=== PATIENT | male | born 1945 | race Caucasian/White ===

== ENCOUNTER 2022-05-05 14:42 | Inpatient (IN) | payer MEDICARE, SELFPAY ==
[~2022-05-05] VITALS: Ht 182.9 cm; Wt 127.0 kg
[2022-05-05] VITALS (8 sets, daily range): BP systolic 113–167; BP diastolic 54–88
[2022-05-05] MEDS ORDERED: ADVA230A INH (18:26)
[2022-05-05] MEDS ORDERED: MONT10TA97 PO (18:26)
[2022-05-05] MEDS ORDERED: NYST1POW9 TOP (18:26)
[2022-05-05] MEDS ORDERED: METF500T13 PO (18:26)
[2022-05-05] MEDS ORDERED: LOSA100T45 PO (18:26)
[2022-05-05] MEDS ORDERED: OMEP40CA5 PO (18:26)
[2022-05-05] MEDS ORDERED: VENTAER INH (18:26)
[2022-05-05] MEDS ORDERED: ZOLO100T PO (18:26)
[2022-05-05] MEDS ORDERED: ALPR0.25 PO (18:26)
[2022-05-05] MEDS ORDERED: SIMV20TA22 PO (18:26)
[2022-05-05] MEDS ORDERED: DICY20TA20 PO (18:26)
[2022-05-05] MEDS ORDERED: DILT30TA PO (18:26)
[2022-05-05] MEDS ORDERED: FAMO20TA PO (18:26)
[2022-05-05] MEDS ORDERED: GABA-282 PO ×2 (18:26)
[2022-05-05] MEDS ORDERED: ALBUTEROL SULFATE 2.5MG/0.5ML INH NEB SOLN NEB PRN (18:35)
[2022-05-05] MEDS ORDERED: CLAR10CA3 PO (18:39)
[2022-05-05] MEDS ORDERED: FERR1TAB8 PO (18:39)
[2022-05-05] MEDS ORDERED: D31000CA4 PO (18:39)
[2022-05-05] MEDS ORDERED: CENT1TAB PO (18:39)
[2022-05-05] MEDS ORDERED: B-12100021 PO (18:39)
[2022-05-05] MEDS ORDERED: CVS500CA5 PO (18:39)
[2022-05-05] MEDS ORDERED: MUCI600T31 PO (18:39)
[2022-05-05] MEDS ORDERED: ASPI-1 PO (18:39)
[2022-05-05] MEDS ORDERED: OSTETAB2 PO (18:39)
[2022-05-05] MEDS ORDERED: VITA-158 PO (18:39)
[2022-05-05] MEDS ORDERED: REFR0.5D8 OU (18:39)
[2022-05-05] MEDS ORDERED: COFF1CAP3 PO (18:39)
[2022-05-05] MEDS ORDERED: CVS1CAP2 PO (18:39)
[2022-05-05] MEDS ORDERED: SLOWTAB2 PO (18:48)
[2022-05-05] MEDS ORDERED: FURO40TA2 PO (18:48)
[2022-05-05] MEDS ORDERED: NASA1SPR NARES (18:48)
[2022-05-05] MEDS ORDERED: HOME MED LIST COMPLETE! XX SCH (18:55)
[2022-05-05] MEDS ORDERED: MIDAZOLAM INJ 2MG/2ML VIAL As Ordered ONE ×3 (18:55→19:28)
[2022-05-05] MEDS ORDERED: LIDOCAINE 1% MDV 20ML VIAL As Ordered ONE ×2 (18:56→18:57)
[2022-05-05] MEDS ORDERED: flumazeniL 0.5MG/5ML VIAL As Ordered ONE (18:57)
[2022-05-05 19:09] LABS: HEMATOCRIT 43.7 % (42.0-52.0); HEMOGLOBIN 13.8 g/dl (13.5-17.5); MEAN CORPUSCULAR HEMOGLOBIN 28.6 pg (27.0-33.0); MEAN CORPUSCULAR HGB CONC 31.6 g/dl (32.0-36.5); MEAN CORPUSCULAR VOLUME 90.5 fl (80.0-96.0); PLATELET COUNT, AUTOMATED 208 10^3/uL (150-450); RED BLOOD COUNT 4.83 10^6/uL (4.30-6.10); WHITE BLOOD COUNT 10.1 10^3/uL (4.0-10.0)
[2022-05-05] MEDS ORDERED: GLUCAGON INJ 1MG VIAL SC PRN (19:15)
[2022-05-05] MEDS ORDERED: GLUCOSE 4GM CHEW TABLET PO PRN (19:15)
[2022-05-05] MEDS ORDERED: DEXTROSE 50% 50ML SYRINGE IV PRN (19:15)
[2022-05-05 19:20] LABS: INR 1.05; PROTHROMBIN TIME 13.9 SECONDS (12.5-14.5)
[2022-05-05] MEDS ORDERED: FAMOTIDINE 20 MG TAB PO PRN (19:20)
[2022-05-05] MEDS ORDERED: POLYVINYL ALCOHOL OPHTH SOLN 15ML (LIQUITEARS) OU PRN (19:20)
[2022-05-05 19:21] LABS: PARTIAL THROMBOPLASTIN TIME 30.7 SECONDS (24.8-34.2)
[2022-05-05 19:32] LABS: ALKALINE PHOSPHATASE 76 U/L (46-116); ALT/SGPT 23 U/L (7.0-40); AST/SGOT < 8 U/L (<34); BLOOD UREA NITROGEN 22 MG/DL (9-23); CALCIUM LEVEL 8.6 MG/DL (8.3-10.6); CARBON DIOXIDE LEVEL 28 MMOL/L (20-31); CHLORIDE LEVEL 105 MMOL/L (98-107); CREATININE FOR GFR 0.84 MG/DL (0.70-1.30); GLOMERULAR FILTRATION RATE > 60.0 (>42); GLUCOSE, FASTING 146 MG/DL (74-106); POTASSIUM SERUM 4.3 MMOL/L (3.5-5.1); SODIUM LEVEL 138 MMOL/L (136-145)
[2022-05-05 19:33] LABS: CPK CREATINE PHOSPHOKINASE 103 U/L (46-171); MB/CK RELATIVE INDEX 0.97 (< OR =4)
[2022-05-05] MEDS: MIDAZOLAM 5MG 5ML VIAL (FOR CHEST TUBE INSERTIONS) IV PRN ×3 (19:38→19:42)
[2022-05-05] MEDS: MIDAZOLAM INJ 2MG/2ML VIAL IV PRN ×4 (19:38→21:33)
[2022-05-05] MEDS ORDERED: LIDOCAINE 1% MDV 20ML VIAL SC PRN (20:00)
[2022-05-05] MEDS ORDERED: PERCOCET 5MG/325MG TAB PO PRN (20:00)
[2022-05-05] MEDS ORDERED: ACETAMINOPHEN TAB 650MG DOSE (2X325MG) PO PRN (20:00)
[2022-05-05] MEDS ORDERED: ONDANSETRON 4MG 2ML VIAL IV PRN (20:00)
[2022-05-05] MEDS ORDERED: BISACODYL 10MG SUPP PR PRN (20:00)
[2022-05-05] MEDS ORDERED: LEVALBUTEROL 1.25MG 0.5ML CONCENTRATE NEB NEB PRN (20:00)
[2022-05-05] MEDS ORDERED: flumazeniL 0.5MG/5ML VIAL IV PRN (20:00)
[2022-05-05 20:02] LABS: ABG BASE EXCESS -2.1 (-2.0-2.0); ABG HCO3 24.2 MEQ/L (22.0-26.0); ABG O2 SATURATION 95.6 % (95.0-99.0); ABG PARTIAL PRESSURE CO2 47.8 mmHg (35.0-45.0); ABG PARTIAL PRESSURE O2 85.8 mmHg (75.0-100.0); ABG STANDARD HCO3 22.7 MEQ/L (22.0-26.0); ABG TOTAL CO2 25.7 MEQ/L (23.0-31.0); ABG pH (ARTERIAL) 7.323 UNITS (7.350-7.450)
[2022-05-05] MEDS: KCL 20MEQ IN D5/NS 1000ML 1,000 ML IV SCH (20:21)
[2022-05-05] MEDS: PERCOCET 5MG/325MG TAB PO PRN (20:33)
[2022-05-05] MEDS: KETOROLAC 30 MG/ML 1ML VIAL IV SCH (20:37)
[2022-05-05] MEDS ORDERED: UNRESOLVED CLARIFICATION ENTRY XX STA (20:52)
[2022-05-05] MEDS: INSULIN LISPRO (NovoLOG) PER UNIT SC SCH (21:00)
[2022-05-05] MEDS: IPRATROPIUM 0.5MG/ALBUTEROL 2.5MG INH SOL UD 3ML (DUONEB) NEB SCH (21:31)
[2022-05-05] MEDS: LEVALBUTEROL 1.25MG 0.5ML CONCENTRATE NEB NEB SCH (21:31)
[2022-05-05] MEDS: guaiFENesin ER 600 MG TAB PO SCH (22:09)
[2022-05-05] MEDS: SIMVASTATIN 20 MG TAB PO SCH (22:09)
[2022-05-05] MEDS: DOCUSATE SODIUM 100MG CAPSULE PO SCH (22:09)
[2022-05-06] VITALS (8 sets, daily range): BP systolic 99–136; BP diastolic 50–66; O2SAT 99
[2022-05-06] MEDS: GABAPENTIN 300 MG CAP PO SCH ×4 (01:03→20:25)
[2022-05-06] MEDS: LEVALBUTEROL 1.25MG 0.5ML CONCENTRATE NEB NEB SCH ×4 (02:00→19:14)
[2022-05-06] MEDS: KETOROLAC 30 MG/ML 1ML VIAL IV SCH ×4 (03:28→20:27)
[2022-05-06 06:07] LABS: ABG BASE EXCESS -0.4 (-2.0-2.0); ABG HCO3 26.6 MEQ/L (22.0-26.0); ABG O2 SATURATION 95.5 % (95.0-99.0); ABG PARTIAL PRESSURE CO2 53.4 mmHg (35.0-45.0); ABG PARTIAL PRESSURE O2 87.3 mmHg (75.0-100.0); ABG STANDARD HCO3 24.2 MEQ/L (22.0-26.0); ABG TOTAL CO2 28.2 MEQ/L (23.0-31.0); ABG pH (ARTERIAL) 7.315 UNITS (7.350-7.450)
[2022-05-06 06:45] LABS: BASO % 0.2 % (0.0-1.0); EOS # 0.3 10^3/uL (0.0-0.5); EOS % 2.9 % (0.0-3.0); HEMATOCRIT 37.8 % (42.0-52.0); HEMOGLOBIN 11.9 g/dl (13.5-17.5); LYMPH # 1.6 10^3/uL (1.5-5.0); LYMPH % 16.3 % (24.0-44.0); MEAN CORPUSCULAR HEMOGLOBIN 28.6 pg (27.0-33.0); MEAN CORPUSCULAR HGB CONC 31.5 g/dl (32.0-36.5); MEAN CORPUSCULAR VOLUME 90.9 fl (80.0-96.0); MONO # 0.7 10^3/uL (0.0-0.8); MONO % 6.8 % (2.0-8.0); NEUTROPHILS # 7.2 10^3/uL (1.5-8.5); NEUTROPHILS % 73.6 % (36.0-66.0); PLATELET COUNT, AUTOMATED 189 10^3/uL (150-450); RED BLOOD COUNT 4.16 10^6/uL (4.30-6.10); WHITE BLOOD COUNT 9.8 10^3/uL (4.0-10.0)
[2022-05-06 07:20] LABS: ALBUMIN 3.5 G/DL (3.2-5.2); ALKALINE PHOSPHATASE 65 U/L (46-116); ALT/SGPT 18 U/L (7.0-40); AST/SGOT 17 U/L (<34); BILIRUBIN,TOTAL 1.1 MG/DL (0.3-1.2); BLOOD UREA NITROGEN 23 MG/DL (9-23); CARBON DIOXIDE LEVEL 30 MMOL/L (20-31); CHLORIDE LEVEL 101 MMOL/L (98-107); CREATININE FOR GFR 0.89 MG/DL (0.70-1.30); GLOMERULAR FILTRATION RATE > 60.0 (>42); GLUCOSE, FASTING 154 MG/DL (74-106); POTASSIUM SERUM 4.3 MMOL/L (3.5-5.1); SODIUM LEVEL 136 MMOL/L (136-145)
[2022-05-06] MEDS: IPRATROPIUM 0.5MG/ALBUTEROL 2.5MG INH SOL UD 3ML (DUONEB) NEB SCH ×2 (07:29→12:32)
[2022-05-06] MEDS ORDERED: OMEPRAZOLE 20MG CAP PO SCH (09:00)
[2022-05-06] MEDS: DOCUSATE SODIUM 100MG CAPSULE PO SCH ×2 (09:29→20:26)
[2022-05-06] MEDS: ASPIRIN 325 MG TAB PO SCH (09:29)
[2022-05-06] MEDS: PANTOPRAZOLE 40MG TAB (PROTONIX) PO SCH (09:29)
[2022-05-06] MEDS: LACTOBACILLUS ACIDOPHILUS CAP (BACID) PO SCH (09:29)
[2022-05-06] MEDS: LORATADINE 10 MG TAB PO SCH (09:29)
[2022-05-06] MEDS: MOM 30ML SUSPENSION UDC PO SCH (09:29)
[2022-05-06] MEDS: FERROUS SULFATE 325MG TAB PO SCH (09:30)
[2022-05-06] MEDS: FUROSEMIDE 40 MG TAB PO SCH (09:30)
[2022-05-06] MEDS: SERTRALINE 100 MG TAB PO SCH (09:30)
[2022-05-06] MEDS: ASCORBIC ACID 500 MG TAB PO SCH (09:30)
[2022-05-06] MEDS: MONTELUKAST 10 MG TAB PO SCH (09:30)
[2022-05-06] MEDS: guaiFENesin ER 600 MG TAB PO SCH ×2 (09:30→20:26)
[2022-05-06] MEDS: INSULIN LISPRO (NovoLOG) PER UNIT SC SCH ×4 (09:31→20:28)
[2022-05-06] MEDS: HEPARIN SOD (PORCINE) 5000UNITS/ML 1ML VIAL/SYRINGE SC SCH ×2 (09:31→20:25)
[2022-05-06] MEDS: LOSARTAN 50MG TABLET PO SCH (09:32)
[2022-05-06] MEDS: KCL 20MEQ IN D5/NS 1000ML 1,000 ML IV SCH (09:33)
[2022-05-06] MEDS: SIMVASTATIN 20 MG TAB PO SCH (20:26)
[2022-05-06] MEDS: ALPRAZolam 0.25 MG TAB PO PRN (22:18)
[2022-05-07 00:12] VITALS: BP 145/67
[2022-05-07] MEDS: LEVALBUTEROL 1.25MG 0.5ML CONCENTRATE NEB NEB SCH ×4 (01:41→19:32)
[2022-05-07] MEDS: KETOROLAC 30 MG/ML 1ML VIAL IV SCH ×4 (03:00→20:35)
[2022-05-07 04:06] VITALS: BP 131/60
[2022-05-07 05:06] LABS: BASO % 0.4 % (0.0-1.0); EOS # 0.3 10^3/uL (0.0-0.5); EOS % 3.5 % (0.0-3.0); HEMATOCRIT 37.2 % (42.0-52.0); LYMPH # 1.3 10^3/uL (1.5-5.0); LYMPH % 16.7 % (24.0-44.0); MEAN CORPUSCULAR HEMOGLOBIN 29.2 pg (27.0-33.0); MEAN CORPUSCULAR HGB CONC 32.3 g/dl (32.0-36.5); MEAN CORPUSCULAR VOLUME 90.5 fl (80.0-96.0); MONO # 0.7 10^3/uL (0.0-0.8); MONO % 8.2 % (2.0-8.0); NEUTROPHILS # 5.6 10^3/uL (1.5-8.5); NEUTROPHILS % 70.8 % (36.0-66.0); PLATELET COUNT, AUTOMATED 183 10^3/uL (150-450); RED BLOOD COUNT 4.11 10^6/uL (4.30-6.10)
[2022-05-07 05:36] LABS: ALBUMIN 3.5 G/DL (3.2-5.2); ALKALINE PHOSPHATASE 67 U/L (46-116); ALT/SGPT 18 U/L (7.0-40); AST/SGOT < 8 U/L (<34); BILIRUBIN,TOTAL 0.9 MG/DL (0.3-1.2); BLOOD UREA NITROGEN 17 MG/DL (9-23); CALCIUM LEVEL 7.8 MG/DL (8.3-10.6); CARBON DIOXIDE LEVEL 27 MMOL/L (20-31); CHLORIDE LEVEL 106 MMOL/L (98-107); CREATININE FOR GFR 0.86 MG/DL (0.70-1.30); GLOMERULAR FILTRATION RATE > 60.0 (>42); GLUCOSE, FASTING 159 MG/DL (74-106); SODIUM LEVEL 138 MMOL/L (136-145); TOTAL PROTEIN 6.1 G/DL (5.7-8.2)
[2022-05-07] MEDS: INSULIN LISPRO (NovoLOG) PER UNIT SC SCH ×4 (07:30→20:36)
[2022-05-07 08:37] VITALS: BP 158/86
[2022-05-07] MEDS: FERROUS SULFATE 325MG TAB PO SCH (09:03)
[2022-05-07] MEDS: HEPARIN SOD (PORCINE) 5000UNITS/ML 1ML VIAL/SYRINGE SC SCH ×2 (09:03→20:35)
[2022-05-07] MEDS: DOCUSATE SODIUM 100MG CAPSULE PO SCH ×2 (09:03→20:34)
[2022-05-07] MEDS: LOSARTAN 50MG TABLET PO SCH (09:04)
[2022-05-07] MEDS: MONTELUKAST 10 MG TAB PO SCH (09:05)
[2022-05-07] MEDS: guaiFENesin ER 600 MG TAB PO SCH ×2 (09:05→20:33)
[2022-05-07] MEDS: SERTRALINE 100 MG TAB PO SCH (09:05)
[2022-05-07] MEDS: ASPIRIN 325 MG TAB PO SCH (09:05)
[2022-05-07] MEDS: LORATADINE 10 MG TAB PO SCH (09:05)
[2022-05-07] MEDS: GABAPENTIN 300 MG CAP PO SCH ×3 (09:05→20:33)
[2022-05-07] MEDS: ASCORBIC ACID 500 MG TAB PO SCH (09:05)
[2022-05-07] MEDS: LACTOBACILLUS ACIDOPHILUS CAP (BACID) PO SCH (09:05)
[2022-05-07] MEDS: MOM 30ML SUSPENSION UDC PO SCH (09:06)
[2022-05-07] MEDS: PANTOPRAZOLE 40MG TAB (PROTONIX) PO SCH (09:06)
[2022-05-07] MEDS: FUROSEMIDE 40 MG TAB PO SCH (09:06)
[2022-05-07 12:16] VITALS: BP 117/70
[2022-05-07 16:48] VITALS: BP 133/66
[2022-05-07 20:00] VITALS: BP 118/59
[2022-05-07] MEDS: SIMVASTATIN 20 MG TAB PO SCH (20:34)
[2022-05-07] MEDS: ALPRAZolam 0.25 MG TAB PO PRN (20:35)
[2022-05-08] VITALS (7 sets, daily range): BP systolic 107–140; BP diastolic 56–79
[2022-05-08] MEDS: LEVALBUTEROL 1.25MG 0.5ML CONCENTRATE NEB NEB SCH ×3 (02:00→13:29)
[2022-05-08] MEDS: KETOROLAC 30 MG/ML 1ML VIAL IV SCH ×3 (02:45→15:07)
[2022-05-08 06:06] LABS: BASO % 0.2 % (0.0-1.0); EOS # 0.3 10^3/uL (0.0-0.5); EOS % 3.9 % (0.0-3.0); HEMATOCRIT 38.7 % (42.0-52.0); HEMOGLOBIN 12.2 g/dl (13.5-17.5); LYMPH % 12.8 % (24.0-44.0); MEAN CORPUSCULAR HGB CONC 31.5 g/dl (32.0-36.5); MEAN CORPUSCULAR VOLUME 91.9 fl (80.0-96.0); MONO # 0.6 10^3/uL (0.0-0.8); MONO % 7.2 % (2.0-8.0); NEUTROPHILS # 6.1 10^3/uL (1.5-8.5); NEUTROPHILS % 75.5 % (36.0-66.0); PLATELET COUNT, AUTOMATED 195 10^3/uL (150-450); RED BLOOD COUNT 4.21 10^6/uL (4.30-6.10); WHITE BLOOD COUNT 8.1 10^3/uL (4.0-10.0)
[2022-05-08 06:46] LABS: ALBUMIN 3.6 G/DL (3.2-5.2); ALKALINE PHOSPHATASE 71 U/L (46-116); ALT/SGPT 18 U/L (7.0-40); AST/SGOT 18 U/L (<34); BILIRUBIN,TOTAL 1.3 MG/DL (0.3-1.2); BLOOD UREA NITROGEN 22 MG/DL (9-23); CALCIUM LEVEL 8.7 MG/DL (8.3-10.6); CARBON DIOXIDE LEVEL 29 MMOL/L (20-31); CHLORIDE LEVEL 101 MMOL/L (98-107); CREATININE FOR GFR 0.91 MG/DL (0.70-1.30); GLOMERULAR FILTRATION RATE > 60.0 (>42); GLUCOSE, FASTING 171 MG/DL (74-106); POTASSIUM SERUM 4.3 MMOL/L (3.5-5.1); SODIUM LEVEL 138 MMOL/L (136-145); TOTAL PROTEIN 6.5 G/DL (5.7-8.2)
[2022-05-08] MEDS: MOM 30ML SUSPENSION UDC PO SCH (09:48)
[2022-05-08] MEDS: HEPARIN SOD (PORCINE) 5000UNITS/ML 1ML VIAL/SYRINGE SC SCH (09:50)
[2022-05-08] MEDS: SERTRALINE 100 MG TAB PO SCH (09:50)
[2022-05-08] MEDS: INSULIN LISPRO (NovoLOG) PER UNIT SC SCH ×3 (09:50→17:30)
[2022-05-08] MEDS: LACTOBACILLUS ACIDOPHILUS CAP (BACID) PO SCH (09:51)
[2022-05-08] MEDS: ASPIRIN 325 MG TAB PO SCH (09:51)
[2022-05-08] MEDS: DOCUSATE SODIUM 100MG CAPSULE PO SCH (09:52)
[2022-05-08] MEDS: ASCORBIC ACID 500 MG TAB PO SCH (09:52)
[2022-05-08] MEDS: PERCOCET 5MG/325MG TAB PO PRN (09:52)
[2022-05-08] MEDS: FERROUS SULFATE 325MG TAB PO SCH (09:52)
[2022-05-08] MEDS: PANTOPRAZOLE 40MG TAB (PROTONIX) PO SCH (09:53)
[2022-05-08] MEDS: GABAPENTIN 300 MG CAP PO SCH ×2 (09:53→12:32)
[2022-05-08] MEDS: guaiFENesin ER 600 MG TAB PO SCH (09:53)
[2022-05-08] MEDS: MONTELUKAST 10 MG TAB PO SCH (09:53)
[2022-05-08] MEDS: LORATADINE 10 MG TAB PO SCH (09:53)
[2022-05-08] MEDS: FUROSEMIDE 40 MG TAB PO SCH (09:54)
[2022-05-08] MEDS: LOSARTAN 50MG TABLET PO SCH (09:54)
[2022-05-08] MEDS ORDERED: ACET1TAB55 PO (17:49)
== END 2022-05-08 19:30 | disposition home or self-care (01) | DRG 166 ==
LOC: M PCU 18:00 → M ICU 19:29 → M PCU 05-06 16:54
PROVIDERS: ADMIT Family Medicine; ATTEND Family Medicine
PROC: 0B9L30Z Drainage of Left Lung with Drainage Device, Percutaneous Approach (ICD-10-PCS; principal; 2022-05-05)
PROC: B246ZZZ Ultrasonography of Right and Left Heart (ICD-10-PCS; 2022-05-06)
DX: J93.0 Spontaneous tension pneumothorax (principal); J96.01 Acute respiratory failure with hypoxia; J45.909 Unspecified asthma, uncomplicated; G47.33 Obstructive sleep apnea (adult) (pediatric); E78.5 Hyperlipidemia, unspecified; D50.9 Iron deficiency anemia, unspecified; I10 Essential (primary) hypertension; I48.91 Unspecified atrial fibrillation; E11.42 Type 2 diabetes mellitus with diabetic polyneuropathy; R07.89 Other chest pain; K21.9 Gastro-esophageal reflux disease without esophagitis; K58.9 Irritable bowel syndrome, unspecified; J98.6 Disorders of diaphragm; Z90.49 Acquired absence of other specified parts of digestive tract; Z95.0 Presence of cardiac pacemaker; Z98.41 Cataract extraction status, right eye; Z98.42 Cataract extraction status, left eye; Z87.891 Personal history of nicotine dependence; Z20.822 Contact with and (suspected) exposure to COVID-19; Z79.82 Long term (current) use of aspirin; Z79.84 Long term (current) use of oral hypoglycemic drugs; Z79.899 Other long term (current) drug therapy

== ENCOUNTER 2022-05-25 09:20 | Inpatient (IN) | payer MEDICARE ==
[~2022-05-25] VITALS: Ht 182.9 cm; Wt 126.6 kg
[2022-05-25] VITALS (14 sets, daily range): BP systolic 119–144; BP diastolic 61–83
[~2022-05-25 09:20] MED LIST: ACET1TAB55 PO; ADVA230A INH; ALPR0.25 PO; ASPI-1 PO; B-12100021 PO; CENT1TAB PO; CLAR10CA3 PO; COFF1CAP3 PO; CVS1CAP2 PO; CVS500CA5 PO; D31000CA4 PO; DICY20TA20 PO; DILT30TA PO; FAMO20TA PO; FERR1TAB8 PO; FURO40TA2 PO; GABA-282 PO; LOSA100T45 PO; METF500T13 PO; MONT10TA97 PO; MUCI600T31 PO; NASA1SPR NARES; NYST1POW9 TOP; OMEP40CA5 PO; OSTETAB2 PO; REFR0.5D8 OU; SIMV20TA22 PO; SLOWTAB2 PO; VENTAER INH; VITA-158 PO; ZOLO100T PO
[2022-05-25] MEDS ORDERED: LEVALBUTEROL 1.25MG 0.5ML CONCENTRATE NEB NEB PRN (11:50)
[2022-05-25] MEDS ORDERED: ONDANSETRON 4MG 2ML VIAL IV PRN (11:50)
[2022-05-25] MEDS ORDERED: ACETAMINOPHEN TAB 650MG DOSE (2X325MG) PO PRN (11:50)
[2022-05-25] MEDS ORDERED: BISACODYL 10MG SUPP PR PRN (11:50)
[2022-05-25] MEDS ORDERED: PERCOCET 5MG/325MG TAB PO PRN (11:50)
[2022-05-25] MEDS ORDERED: flumazeniL 0.5MG/5ML VIAL IV PRN (12:20)
[2022-05-25] MEDS ORDERED: LIDOCAINE 1% MDV 20ML VIAL SC PRN (12:20)
[2022-05-25] MEDS ORDERED: MIDAZOLAM INJ 2MG/2ML VIAL IV PRN (12:30)
[2022-05-25] MEDS: MIDAZOLAM 5MG 5ML VIAL (FOR CHEST TUBE INSERTIONS) IV PRN ×4 (12:40→12:43)
[2022-05-25] MEDS ORDERED: MIDAZOLAM 5MG 5ML VIAL (FOR CHEST TUBE INSERTIONS) IV PRN (13:12)
[2022-05-25] MEDS ORDERED: ALPRAZolam 0.25 MG TAB PO PRN (13:20)
[2022-05-25] MEDS: LEVALBUTEROL 1.25MG 0.5ML CONCENTRATE NEB NEB SCH ×2 (13:30→20:00)
[2022-05-25] MEDS: KCL 20MEQ IN D5/NS 1000ML 1,000 ML IV SCH (14:00)
[2022-05-25 14:05] LABS: BASO % 0.2 % (0.0-1.0); EOS # 0.2 10^3/uL (0.0-0.5); HEMOGLOBIN 12.2 g/dl (13.5-17.5); LYMPH # 1.1 10^3/uL (1.5-5.0); LYMPH % 12.1 % (24.0-44.0); MEAN CORPUSCULAR HGB CONC 32.1 g/dl (32.0-36.5); MEAN CORPUSCULAR VOLUME 90.3 fl (80.0-96.0); MONO # 0.6 10^3/uL (0.0-0.8); MONO % 6.5 % (2.0-8.0); NEUTROPHILS # 7.4 10^3/uL (1.5-8.5); NEUTROPHILS % 78.9 % (36.0-66.0); PLATELET COUNT, AUTOMATED 200 10^3/uL (150-450); RED BLOOD COUNT 4.21 10^6/uL (4.30-6.10); WHITE BLOOD COUNT 9.4 10^3/uL (4.0-10.0)
[2022-05-25 14:11] LABS: ERYTHROCYTE SEDIMENTATION RATE 20 mm/hr (0-20)
[2022-05-25 14:34] LABS: C REACTIVE PROTEIN QUANTITATIV < 0.40 MG/DL (<1.0); CPK CREATINE PHOSPHOKINASE 65 U/L (46-171); MB/CK RELATIVE INDEX 1.53 (< OR =4)
[2022-05-25 14:35] LABS: ALBUMIN 3.8 G/DL (3.2-5.2); ALKALINE PHOSPHATASE 75 U/L (46-116); ALT/SGPT 19 U/L (7.0-40); AST/SGOT 12 U/L (<34); BILIRUBIN,TOTAL 0.7 MG/DL (0.3-1.2); BLOOD UREA NITROGEN 22 MG/DL (9-23); CALCIUM LEVEL 8.9 MG/DL (8.3-10.6); CARBON DIOXIDE LEVEL 31 MMOL/L (20-31); CHLORIDE LEVEL 101 MMOL/L (98-107); CREATININE FOR GFR 0.88 MG/DL (0.70-1.30); GLOMERULAR FILTRATION RATE > 60.0 (>42); GLUCOSE, FASTING 130 MG/DL (74-106); POTASSIUM SERUM 4.2 MMOL/L (3.5-5.1); SODIUM LEVEL 138 MMOL/L (136-145); TOTAL PROTEIN 6.5 G/DL (5.7-8.2)
[2022-05-25] MEDS: PERCOCET 5MG/325MG TAB PO PRN ×2 (15:30→21:12)
[2022-05-25] MEDS ORDERED: IBUP200C25 PO (16:30)
[2022-05-25] MEDS ORDERED: ACET1TAB55 PO (16:30)
[2022-05-25] MEDS ORDERED: EXCETAB32 PO (16:30)
[2022-05-25] MEDS ORDERED: ALLE180T33 PO (16:30)
[2022-05-25] MEDS ORDERED: OMEP40CA4 PO (16:31)
[2022-05-25] MEDS ORDERED: DICY20TA20 PO (17:17)
[2022-05-25] MEDS ORDERED: HOME MED LIST COMPLETE! XX SCH (17:20)
[2022-05-25] MEDS ORDERED: GLUCOSE 4GM CHEW TABLET PO PRN (17:55)
[2022-05-25] MEDS ORDERED: GLUCAGON INJ 1MG VIAL SC PRN (17:55)
[2022-05-25] MEDS ORDERED: DEXTROSE 50% 50ML SYRINGE IV PRN (17:55)
[2022-05-25] MEDS: KETOROLAC 30 MG/ML 1ML VIAL IV SCH (18:22)
[2022-05-25] MEDS: INSULIN LISPRO (NovoLOG) PER UNIT SC SCH ×2 (18:22→21:00)
[2022-05-25] MEDS: ADVAIR HFA 230/21MCG INHALER INH SCH (20:05)
[2022-05-25] MEDS: HEPARIN SOD (PORCINE) 5000UNITS/ML 1ML VIAL/SYRINGE SC SCH (21:00)
[2022-05-25] MEDS: DOCUSATE SODIUM 100MG CAPSULE PO SCH (21:02)
[2022-05-25] MEDS: SIMVASTATIN 20 MG TAB PO SCH (21:03)
[2022-05-25] MEDS: GABAPENTIN 300 MG CAP PO SCH (21:03)
[2022-05-25] MEDS: FAMOTIDINE 20 MG TAB PO SCH (21:03)
[2022-05-25] MEDS: guaiFENesin ER 600 MG TAB PO SCH (21:03)
[2022-05-26] MEDS: KETOROLAC 30 MG/ML 1ML VIAL IV SCH ×5 (00:31→23:52)
[2022-05-26] MEDS: LEVALBUTEROL 1.25MG 0.5ML CONCENTRATE NEB NEB SCH ×4 (02:00→20:00)
[2022-05-26 03:54] VITALS: BP 113/59
[2022-05-26 04:14] LABS: BASO % 0.2 % (0.0-1.0); EOS # 0.4 10^3/uL (0.0-0.5); EOS % 4.9 % (0.0-3.0); HEMATOCRIT 37.8 % (42.0-52.0); HEMOGLOBIN 11.7 g/dl (13.5-17.5); LYMPH # 1.6 10^3/uL (1.5-5.0); LYMPH % 20.3 % (24.0-44.0); MEAN CORPUSCULAR HEMOGLOBIN 28.4 pg (27.0-33.0); MEAN CORPUSCULAR VOLUME 91.7 fl (80.0-96.0); MONO # 0.7 10^3/uL (0.0-0.8); MONO % 8.4 % (2.0-8.0); NEUTROPHILS # 5.3 10^3/uL (1.5-8.5); PLATELET COUNT, AUTOMATED 208 10^3/uL (150-450); RED BLOOD COUNT 4.12 10^6/uL (4.30-6.10)
[2022-05-26 04:28] LABS: BLOOD UREA NITROGEN 23 MG/DL (9-23); CALCIUM LEVEL 8.3 MG/DL (8.3-10.6); CARBON DIOXIDE LEVEL 28 MMOL/L (20-31); CHLORIDE LEVEL 101 MMOL/L (98-107); CREATININE FOR GFR 0.86 MG/DL (0.70-1.30); GLOMERULAR FILTRATION RATE > 60.0 (>42); GLUCOSE, FASTING 156 MG/DL (74-106); POTASSIUM SERUM 4.3 MMOL/L (3.5-5.1); SODIUM LEVEL 136 MMOL/L (136-145)
[2022-05-26] MEDS: KCL 20MEQ IN D5/NS 1000ML 1,000 ML IV SCH (04:55)
[2022-05-26] MEDS: ADVAIR HFA 230/21MCG INHALER INH SCH ×2 (07:28→20:03)
[2022-05-26 08:05] VITALS: BP 117/67
[2022-05-26] MEDS: MONTELUKAST 10 MG TAB PO SCH (08:13)
[2022-05-26] MEDS: MULTIVITAMINS/MINERALS THERAP 1 TAB PO SCH (08:13)
[2022-05-26] MEDS: OMEPRAZOLE 20MG CAP PO SCH (08:13)
[2022-05-26] MEDS: FUROSEMIDE 40 MG TAB PO SCH (08:13)
[2022-05-26] MEDS: guaiFENesin ER 600 MG TAB PO SCH ×2 (08:13→21:00)
[2022-05-26] MEDS: FERROUS SULFATE 325MG TAB PO SCH (08:14)
[2022-05-26] MEDS: SERTRALINE 100 MG TAB PO SCH (08:14)
[2022-05-26] MEDS: MOM 30ML SUSPENSION UDC PO SCH (08:14)
[2022-05-26] MEDS: LOSARTAN 50MG TABLET PO SCH (08:14)
[2022-05-26] MEDS: DOCUSATE SODIUM 100MG CAPSULE PO SCH ×2 (08:14→20:53)
[2022-05-26] MEDS: ASCORBIC ACID 500 MG TAB PO SCH (08:14)
[2022-05-26] MEDS: FEXOFENADINE 60MG TAB PO SCH (08:15)
[2022-05-26] MEDS: ASPIRIN 81MG CHEW TABLET PO SCH (08:15)
[2022-05-26] MEDS: HEPARIN SOD (PORCINE) 5000UNITS/ML 1ML VIAL/SYRINGE SC SCH ×2 (08:16→20:54)
[2022-05-26] MEDS: INSULIN LISPRO (NovoLOG) PER UNIT SC SCH ×4 (08:16→20:54)
[2022-05-26] MEDS ORDERED: PANTOPRAZOLE 40MG TAB (PROTONIX) PO SCH (09:00)
[2022-05-26] MEDS ORDERED: LORATADINE 10 MG TAB PO SCH (09:00)
[2022-05-26 12:12] VITALS: BP 118/61
[2022-05-26] MEDS: ALBUTEROL 90 MCG/ACT 8GM HFA INHALER INH PRN (14:21)
[2022-05-26 15:45] VITALS: BP 112/56
[2022-05-26 20:00] VITALS: BP 115/65
[2022-05-26] MEDS: FAMOTIDINE 20 MG TAB PO SCH (20:53)
[2022-05-26] MEDS: GABAPENTIN 300 MG CAP PO SCH (20:54)
[2022-05-26] MEDS: SIMVASTATIN 20 MG TAB PO SCH (20:54)
[2022-05-26] MEDS: PERCOCET 5MG/325MG TAB PO PRN (21:00)
[2022-05-26] MEDS ORDERED: SUCRALFATE SUSP 1GM/10ML UD PO ONE (22:45)
[2022-05-27] VITALS (7 sets, daily range): BP systolic 100–126; BP diastolic 52–74
[2022-05-27] MEDS: LEVALBUTEROL 1.25MG 0.5ML CONCENTRATE NEB NEB SCH ×4 (02:00→19:38)
[2022-05-27] MEDS: PERCOCET 5MG/325MG TAB PO PRN ×3 (04:10→21:10)
[2022-05-27 04:30] LABS: BASO % 0.2 % (0.0-1.0); EOS # 0.4 10^3/uL (0.0-0.5); HEMATOCRIT 37.6 % (42.0-52.0); LYMPH # 1.4 10^3/uL (1.5-5.0); LYMPH % 17.1 % (24.0-44.0); MEAN CORPUSCULAR HEMOGLOBIN 29.1 pg (27.0-33.0); MEAN CORPUSCULAR HGB CONC 31.9 g/dl (32.0-36.5); MONO # 0.6 10^3/uL (0.0-0.8); MONO % 7.3 % (2.0-8.0); NEUTROPHILS # 5.7 10^3/uL (1.5-8.5); PLATELET COUNT, AUTOMATED 215 10^3/uL (150-450); RED BLOOD COUNT 4.13 10^6/uL (4.30-6.10); WHITE BLOOD COUNT 8.1 10^3/uL (4.0-10.0)
[2022-05-27 04:55] LABS: BLOOD UREA NITROGEN 21 MG/DL (9-23); CALCIUM LEVEL 8.6 MG/DL (8.3-10.6); CARBON DIOXIDE LEVEL 30 MMOL/L (20-31); CHLORIDE LEVEL 100 MMOL/L (98-107); CREATININE FOR GFR 0.91 MG/DL (0.70-1.30); GLOMERULAR FILTRATION RATE > 60.0 (>42); GLUCOSE, FASTING 148 MG/DL (74-106); POTASSIUM SERUM 4.7 MMOL/L (3.5-5.1); SODIUM LEVEL 137 MMOL/L (136-145)
[2022-05-27] MEDS: KETOROLAC 30 MG/ML 1ML VIAL IV SCH ×4 (05:48→23:14)
[2022-05-27] MEDS: ADVAIR HFA 230/21MCG INHALER INH SCH ×2 (07:33→19:37)
[2022-05-27] MEDS: MULTIVITAMINS/MINERALS THERAP 1 TAB PO SCH (08:34)
[2022-05-27] MEDS: LOSARTAN 50MG TABLET PO SCH (08:34)
[2022-05-27] MEDS: guaiFENesin ER 600 MG TAB PO SCH ×2 (08:35→21:08)
[2022-05-27] MEDS: FEXOFENADINE 60MG TAB PO SCH (08:35)
[2022-05-27] MEDS: OMEPRAZOLE 20MG CAP PO SCH (08:35)
[2022-05-27] MEDS: ASCORBIC ACID 500 MG TAB PO SCH (08:35)
[2022-05-27] MEDS: FERROUS SULFATE 325MG TAB PO SCH (08:35)
[2022-05-27] MEDS: DOCUSATE SODIUM 100MG CAPSULE PO SCH ×2 (08:35→21:10)
[2022-05-27] MEDS: SERTRALINE 100 MG TAB PO SCH (08:35)
[2022-05-27] MEDS: MONTELUKAST 10 MG TAB PO SCH (08:35)
[2022-05-27] MEDS: MOM 30ML SUSPENSION UDC PO SCH (08:36)
[2022-05-27] MEDS: FUROSEMIDE 40 MG TAB PO SCH (08:36)
[2022-05-27] MEDS: ASPIRIN 81MG CHEW TABLET PO SCH (08:36)
[2022-05-27] MEDS: INSULIN LISPRO (NovoLOG) PER UNIT SC SCH ×4 (08:36→21:00)
[2022-05-27] MEDS: HEPARIN SOD (PORCINE) 5000UNITS/ML 1ML VIAL/SYRINGE SC SCH ×2 (08:36→21:10)
[2022-05-27] MEDS: ALBUTEROL 90 MCG/ACT 8GM HFA INHALER INH PRN (14:37)
[2022-05-27] MEDS ORDERED: SODIUM CHLORIDE NASAL 0.65% SPRAY BTL (OCEAN) PRN (15:40)
[2022-05-27] MEDS: SODIUM CHLORIDE 0.9% NASAL GEL 15GM (AYR) SCH ×2 (17:47→21:11)
[2022-05-27] MEDS: GABAPENTIN 300 MG CAP PO SCH (21:09)
[2022-05-27] MEDS: SIMVASTATIN 20 MG TAB PO SCH (21:09)
[2022-05-27] MEDS: FAMOTIDINE 20 MG TAB PO SCH (21:10)
[2022-05-28] VITALS: BP 111/59
[2022-05-28] MEDS: ALBUTEROL 90 MCG/ACT 8GM HFA INHALER INH PRN (01:58)
[2022-05-28] MEDS: LEVALBUTEROL 1.25MG 0.5ML CONCENTRATE NEB NEB SCH ×4 (01:59→19:04)
[2022-05-28 04:00] VITALS: BP 129/64
[2022-05-28] MEDS: PERCOCET 5MG/325MG TAB PO PRN (04:20)
[2022-05-28 05:26] LABS: BASO % 0.3 % (0.0-1.0); EOS # 0.5 10^3/uL (0.0-0.5); HEMATOCRIT 37.7 % (42.0-52.0); LYMPH # 1.4 10^3/uL (1.5-5.0); LYMPH % 18.7 % (24.0-44.0); MEAN CORPUSCULAR HEMOGLOBIN 29.1 pg (27.0-33.0); MEAN CORPUSCULAR HGB CONC 31.8 g/dl (32.0-36.5); MEAN CORPUSCULAR VOLUME 91.3 fl (80.0-96.0); MONO # 0.7 10^3/uL (0.0-0.8); MONO % 8.5 % (2.0-8.0); NEUTROPHILS # 5.1 10^3/uL (1.5-8.5); NEUTROPHILS % 66.2 % (36.0-66.0); PLATELET COUNT, AUTOMATED 196 10^3/uL (150-450); RED BLOOD COUNT 4.13 10^6/uL (4.30-6.10); WHITE BLOOD COUNT 7.6 10^3/uL (4.0-10.0)
[2022-05-28 05:54] LABS: BLOOD UREA NITROGEN 22 MG/DL (9-23); CALCIUM LEVEL 8.1 MG/DL (8.3-10.6); CARBON DIOXIDE LEVEL 30 MMOL/L (20-31); CHLORIDE LEVEL 101 MMOL/L (98-107); CREATININE FOR GFR 0.93 MG/DL (0.70-1.30); GLOMERULAR FILTRATION RATE > 60.0 (>42); GLUCOSE, FASTING 151 MG/DL (74-106); POTASSIUM SERUM 4.3 MMOL/L (3.5-5.1); SODIUM LEVEL 136 MMOL/L (136-145)
[2022-05-28] MEDS: KETOROLAC 30 MG/ML 1ML VIAL IV SCH ×4 (06:00→23:55)
[2022-05-28] MEDS: ADVAIR HFA 230/21MCG INHALER INH SCH ×2 (07:07→19:04)
[2022-05-28] MEDS ORDERED: FUROSEMIDE 40MG/4ML VIAL IV ONE (07:15)
[2022-05-28] MEDS: INSULIN LISPRO (NovoLOG) PER UNIT SC SCH ×4 (08:06→20:53)
[2022-05-28] MEDS: SERTRALINE 100 MG TAB PO SCH (08:33)
[2022-05-28] MEDS: MOM 30ML SUSPENSION UDC PO SCH (08:33)
[2022-05-28] MEDS: FERROUS SULFATE 325MG TAB PO SCH (08:33)
[2022-05-28] MEDS: LOSARTAN 50MG TABLET PO SCH (08:34)
[2022-05-28] MEDS: FUROSEMIDE 40 MG TAB PO SCH (08:34)
[2022-05-28] MEDS: ASPIRIN 81MG CHEW TABLET PO SCH (08:34)
[2022-05-28] MEDS: ASCORBIC ACID 500 MG TAB PO SCH (08:35)
[2022-05-28] MEDS: DOCUSATE SODIUM 100MG CAPSULE PO SCH ×2 (08:35→21:07)
[2022-05-28] MEDS: HEPARIN SOD (PORCINE) 5000UNITS/ML 1ML VIAL/SYRINGE SC SCH ×2 (08:35→21:03)
[2022-05-28] MEDS: OMEPRAZOLE 20MG CAP PO SCH (08:35)
[2022-05-28] MEDS: MONTELUKAST 10 MG TAB PO SCH (08:35)
[2022-05-28] MEDS: MULTIVITAMINS/MINERALS THERAP 1 TAB PO SCH (08:35)
[2022-05-28] MEDS: guaiFENesin ER 600 MG TAB PO SCH ×2 (08:35→21:03)
[2022-05-28] MEDS: SODIUM CHLORIDE 0.9% NASAL GEL 15GM (AYR) SCH ×4 (08:41→21:03)
[2022-05-28] MEDS: FEXOFENADINE 60MG TAB PO SCH (09:10)
[2022-05-28 12:33] VITALS: BP 119/57
[2022-05-28 16:09] VITALS: BP 123/64
[2022-05-28 20:00] VITALS: BP 128/60
[2022-05-28] MEDS: FAMOTIDINE 20 MG TAB PO SCH (21:03)
[2022-05-28] MEDS: SIMVASTATIN 20 MG TAB PO SCH (21:03)
[2022-05-28] MEDS: GABAPENTIN 300 MG CAP PO SCH (21:04)
[2022-05-29] MEDS: LEVALBUTEROL 1.25MG 0.5ML CONCENTRATE NEB NEB SCH ×3 (02:26→15:28)
[2022-05-29 05:10] LABS: BASO % 0.3 % (0.0-1.0); EOS # 0.3 10^3/uL (0.0-0.5); EOS % 4.7 % (0.0-3.0); HEMATOCRIT 37.4 % (42.0-52.0); LYMPH # 1.5 10^3/uL (1.5-5.0); LYMPH % 22.5 % (24.0-44.0); MEAN CORPUSCULAR HGB CONC 32.1 g/dl (32.0-36.5); MEAN CORPUSCULAR VOLUME 90.3 fl (80.0-96.0); MONO # 0.6 10^3/uL (0.0-0.8); NEUTROPHILS # 4.4 10^3/uL (1.5-8.5); NEUTROPHILS % 64.1 % (36.0-66.0); PLATELET COUNT, AUTOMATED 206 10^3/uL (150-450); RED BLOOD COUNT 4.14 10^6/uL (4.30-6.10); WHITE BLOOD COUNT 6.9 10^3/uL (4.0-10.0)
[2022-05-29] MEDS: KETOROLAC 30 MG/ML 1ML VIAL IV SCH ×2 (05:25→11:56)
[2022-05-29 05:29] LABS: BLOOD UREA NITROGEN 22 MG/DL (9-23); CALCIUM LEVEL 8.6 MG/DL (8.3-10.6); CARBON DIOXIDE LEVEL 32 MMOL/L (20-31); CHLORIDE LEVEL 98 MMOL/L (98-107); GLOMERULAR FILTRATION RATE > 60.0 (>42); GLUCOSE, FASTING 148 MG/DL (74-106); POTASSIUM SERUM 4.2 MMOL/L (3.5-5.1); SODIUM LEVEL 137 MMOL/L (136-145)
[2022-05-29] MEDS ORDERED: SENN1TAB41 PO (07:44)
[2022-05-29] MEDS ORDERED: PERCOCET PO (07:44)
[2022-05-29 08:00] VITALS: BP 115/60
[2022-05-29] MEDS: ADVAIR HFA 230/21MCG INHALER INH SCH (08:01)
[2022-05-29] MEDS: MONTELUKAST 10 MG TAB PO SCH (08:18)
[2022-05-29] MEDS: HEPARIN SOD (PORCINE) 5000UNITS/ML 1ML VIAL/SYRINGE SC SCH (08:18)
[2022-05-29] MEDS: DOCUSATE SODIUM 100MG CAPSULE PO SCH (08:18)
[2022-05-29] MEDS: MOM 30ML SUSPENSION UDC PO SCH (08:18)
[2022-05-29] MEDS: INSULIN LISPRO (NovoLOG) PER UNIT SC SCH ×2 (08:18→12:02)
[2022-05-29] MEDS: MULTIVITAMINS/MINERALS THERAP 1 TAB PO SCH (08:18)
[2022-05-29 08:19] VITALS: BP 115/60
[2022-05-29] MEDS: ASCORBIC ACID 500 MG TAB PO SCH (08:19)
[2022-05-29] MEDS: SERTRALINE 100 MG TAB PO SCH (08:19)
[2022-05-29] MEDS: guaiFENesin ER 600 MG TAB PO SCH (08:19)
[2022-05-29] MEDS: LOSARTAN 50MG TABLET PO SCH (08:19)
[2022-05-29] MEDS: ASPIRIN 81MG CHEW TABLET PO SCH (08:20)
[2022-05-29] MEDS: FUROSEMIDE 40 MG TAB PO SCH (08:20)
[2022-05-29] MEDS: FERROUS SULFATE 325MG TAB PO SCH (08:20)
[2022-05-29] MEDS: FEXOFENADINE 60MG TAB PO SCH (08:20)
[2022-05-29] MEDS: OMEPRAZOLE 20MG CAP PO SCH (08:20)
[2022-05-29] MEDS: SODIUM CHLORIDE 0.9% NASAL GEL 15GM (AYR) SCH ×2 (08:21→12:02)
[2022-05-29 12:00] VITALS: BP 117/63
== END 2022-05-29 15:51 | disposition home or self-care (01) | DRG 199 ==
LOC: M PCU 11:44 → OBSVTOIN 11:44
PROVIDERS: ADMIT General Practice; ATTEND General Practice
PROC: 0W9B30Z Drainage of Left Pleural Cavity with Drainage Device, Percutaneous Approach (ICD-10-PCS; principal; 2022-05-29)
DX: J93.0 Spontaneous tension pneumothorax (principal); J96.01 Acute respiratory failure with hypoxia; I48.20 Chronic atrial fibrillation, unspecified; I48.92 Unspecified atrial flutter; I70.0 Atherosclerosis of aorta; E11.319 Type 2 diabetes mellitus with unspecified diabetic retinopathy without macular edema; J45.909 Unspecified asthma, uncomplicated; G47.33 Obstructive sleep apnea (adult) (pediatric); E78.5 Hyperlipidemia, unspecified; I10 Essential (primary) hypertension; J98.6 Disorders of diaphragm; E11.42 Type 2 diabetes mellitus with diabetic polyneuropathy; K21.9 Gastro-esophageal reflux disease without esophagitis; Z90.49 Acquired absence of other specified parts of digestive tract; Z95.0 Presence of cardiac pacemaker; Z98.41 Cataract extraction status, right eye; Z98.42 Cataract extraction status, left eye; Z87.891 Personal history of nicotine dependence; Z79.82 Long term (current) use of aspirin; Z79.84 Long term (current) use of oral hypoglycemic drugs; Z79.899 Other long term (current) drug therapy; Z79.51 Long term (current) use of inhaled steroids

== ENCOUNTER → 2022-12-25 | Outpatient (CLI) | payer MEDICARE ==
[~2022-12-25] MED LIST changes: +ALLE180T33 PO; +EXCETAB32 PO; +IBUP200C25 PO; -LOSA100T45 PO; +LOSA100T46 PO; +OMEP40CA4 PO; +PERCOCET PO; +SENN1TAB41 PO
== END ==
LOC: M CARPUL 10:21
PROVIDERS: ATTEND Internal Medicine Pulmonary Disease
DX: J45.40 Moderate persistent asthma, uncomplicated (principal)

== ENCOUNTER → 2023-05-22 | Outpatient (CLI) | payer MEDICARE ==
[~2023-05-22] MED LIST changes: -SENN1TAB41 PO; +SENN1TAB85 PO
== END ==
LOC: M SLEEP 20:00
PROVIDERS: ATTEND Internal Medicine Pulmonary Disease
DX: G47.33 Obstructive sleep apnea (adult) (pediatric) (principal)